=== PATIENT | female | born 1940 | race Asian ===

== ENCOUNTER 2019-01-05 04:52 | Emergency (ER) | payer OTHER ==
[~2019-01-05] VITALS: Ht 157.5 cm; Wt 49.0 kg
[2019-01-05 11:21] VITALS: BP 128/72
== END 2019-01-05 11:21 | disposition home or self-care (01) ==
LOC: ER 04:52
DX: S42.221A 2-part displaced fracture of surgical neck of right humerus, initial encounter for closed fracture (principal); I10 Essential (primary) hypertension; W01.0XXA Fall on same level from slipping, tripping and stumbling without subsequent striking against object, initial encounter; Y93.89 Activity, other specified; Y92.520 Airport as the place of occurrence of the external cause
CPT/HCPCS: 73030; 99283; L3670